=== PATIENT | female | born 1985 | race Caucasian/White ===

== ENCOUNTER 2017-08-28 11:30 | Emergency (ER) | payer MEDICAID ==
[~2017-08-28] VITALS: Ht 167.6 cm; Wt 113.4 kg
[~2017-08-28 11:30] MED LIST: AMITRIPTYLINE H10 M1 PO; BACLOFEN 10MG T10 M1 PO; BACTRIM DS TAB1 EACH PO; BIOTIN10 MG PO; CIPROFLOXACIN500 M1 PO; COLACE100 MG PO; CYCLOBENZAPRINE5 MG PO; DAILY VITE1 EACH PO; DOC-Q-LACE PO; DOC-Q-LACE100 MG PO; ENABLEX PO; ENABLEX15 MG PO; FLEXERIL PO; FLONASE16 GM; FOLIC ACID1 MG PO; GILENYA0.5 MG PO; IBUPROFEN 400400 M1 PO; IRON325; IRON325 PO; LIORESAL 10 MG10 MG PO; LORATIDINE 10 M10 M1; MAGNESIUM400 M1 PO; NORCO 5-325 TA1 EACH PO; PERCOCET 5-3251 EACH PO; PHENERGAN 25 MG25 M1 PO; PREDNISONE50 MG PO; PYRIDIUM200 MG PO; Rebif; SERTRALINE HCL50 MG PO; TAB-A-VITE; TOFRANIL; TOLTERODINE TART4 MG PO; TRAMADOL 50 MG50 MG PO; VITAMIN D31000 UNI2 PO; VITAMIN D400 UNI1 PO; ZANTAC 150MG T150 MG PO; ZOFRAN ODT4 MG PO; ZOVIRAX400 MG PO; [UNRECOGNIZED DRUG - REMARK] PO
[2017-08-28 11:47] VITALS: BP 140/88
[2017-08-28] MEDS ORDERED: BACTRIM DS TAB1 EACH PO (12:06)
[2017-08-28] MEDS ORDERED: ACETAMINOPHEN-1 EAC1 PO (12:06)
[2017-08-28] MEDS ORDERED: NAPROSYN500 MG PO (12:06)
[2017-08-28] MEDS ORDERED: KEFLEX500 M1 PO (12:06)
== END 2017-08-28 12:26 | disposition home or self-care (01) ==
LOC: M.ERS 11:30
DX: L73.9 Follicular disorder, unspecified (principal); G35 Multiple sclerosis; F10.99 Alcohol use, unspecified with unspecified alcohol-induced disorder; Z98.890 Other specified postprocedural states; Z88.5 Allergy status to narcotic agent; Z77.22 Contact with and (suspected) exposure to environmental tobacco smoke (acute) (chronic)

== ENCOUNTER 2018-02-02 20:27 | Emergency (ER) | payer MEDICAID ==
[~2018-02-02] VITALS: Ht 167.6 cm; Wt 113.4 kg
[~2018-02-02 20:27] MED LIST changes: +ACETAMINOPHEN-1 EAC1 PO; +KEFLEX500 M1 PO; +NAPROSYN500 MG PO
[2018-02-02 20:38] VITALS: BP 139/84
[2018-02-02 20:41] LABS: URINE BILIRUBIN NEGATIVE (Negative); URINE BLOOD TRACE (Negative); URINE CLARITY CLOUDY; URINE COLOR YELLOW; URINE GLUCOSE-RANDOM NEGATIVE (Negative); URINE KETONES NEGATIVE (Negative); URINE PROTEIN 1+ (Negative); URINE SPECIFIC GRAVITY >= 1.030 (1.005-1.030); URINE UROBILINOGEN 0.2 E.U./dl (0.2-1.0)
[2018-02-02 20:42] LABS: URINE LEUKOCYTES-REFLEX 2+ (Negative); URINE NITRITE-REFLEX POSITIVE (Negative)
[2018-02-02] MEDS ORDERED: MYRBETRIQ50 MG PO (20:45)
[2018-02-02] MEDS ORDERED: PYRIDIUM100 M1 PO (20:52)
[2018-02-02] MEDS ORDERED: BACTRIM DS TAB1 EACH PO (20:52)
[2018-02-02 20:56] LABS: CASTS None Seen /LPF (None Seen); SQUAMOUS 4-10 Moderate /LPF (0-3)
[2018-02-02 20:57] LABS: BACTERIA-REFLEX >30 Many /HPF (None Seen); CRYSTALS None Seen /LPF (None Seen); URINE RBC 0-2 Rare /HPF (0-2); URINE WBC-REFLEX >25 Many /HPF (0-5)
== END 2018-02-02 20:51 | disposition home or self-care (01) ==
LOC: M.ERS 20:27
PROVIDERS: Physician Assistant
DX: N39.0 Urinary tract infection, site not specified (principal); Z88.6 Allergy status to analgesic agent; Z77.22 Contact with and (suspected) exposure to environmental tobacco smoke (acute) (chronic)

== ENCOUNTER 2018-07-31 08:22 | Emergency (ER) | payer MEDICAID ==
[~2018-07-31] VITALS: Ht 167.6 cm; Wt 120.2 kg
[~2018-07-31 08:22] MED LIST changes: +MYRBETRIQ50 MG PO; +PYRIDIUM100 M1 PO
[2018-07-31 08:31] VITALS: BP 131/72
[2018-07-31] MEDS ORDERED: LEMTRADA12 MG/1.2 IV (08:33)
[2018-07-31] MEDS ORDERED: AMOXICILLIN 50500 MG PO (08:55)
== END 2018-07-31 09:01 | disposition home or self-care (01) ==
LOC: M.ERS 08:22
DX: J06.9 Acute upper respiratory infection, unspecified (principal); G35 Multiple sclerosis; Z88.5 Allergy status to narcotic agent; Z86.2 Personal history of diseases of the blood and blood-forming organs and certain disorders involving the immune mechanism; Z77.22 Contact with and (suspected) exposure to environmental tobacco smoke (acute) (chronic)

== ENCOUNTER 2018-08-19 08:42 | Emergency (ER) | payer MEDICAID ==
[~2018-08-19] VITALS: Ht 167.6 cm; Wt 117.9 kg
[~2018-08-19 08:42] MED LIST changes: +AMOXICILLIN 50500 MG PO; +LEMTRADA12 MG/1.2 IV
[2018-08-19 09:39] LABS: URINE BILIRUBIN NEGATIVE (Negative); URINE BLOOD 3+ (Negative); URINE CLARITY CLEAR; URINE COLOR YELLOW; URINE GLUCOSE-RANDOM NEGATIVE (Negative); URINE KETONES NEGATIVE (Negative); URINE NITRITE-REFLEX NEGATIVE (Negative); URINE PROTEIN NEGATIVE (Negative); URINE UROBILINOGEN 0.2 E.U./dl (0.2-1.0)
[2018-08-19 09:41] LABS: URINE LEUKOCYTES-REFLEX 3+ (Negative)
[2018-08-19 09:48] LABS: BACTERIA-REFLEX >30 Many /HPF (None Seen); SQUAMOUS >10 Many /LPF (0-3); URINE WBC-REFLEX >25 Many /HPF (0-5)
[2018-08-19 09:49] LABS: CASTS None Seen /LPF (None Seen); CRYSTALS None Seen /LPF (None Seen)
[2018-08-19] MEDS ORDERED: KEFLEX500 M1 PO (09:51)
[2018-08-19] MEDS ORDERED: PYRIDIUM200 MG PO (09:51)
[2018-08-19 10:05] VITALS: BP 122/60
== END 2018-08-19 10:06 | disposition home or self-care (01) ==
LOC: M.ERS 08:42
PROVIDERS: Personal Emergency Response Attendant
DX: N39.0 Urinary tract infection, site not specified (principal); G35 Multiple sclerosis; F32.9 Major depressive disorder, single episode, unspecified; Z86.2 Personal history of diseases of the blood and blood-forming organs and certain disorders involving the immune mechanism; Z77.22 Contact with and (suspected) exposure to environmental tobacco smoke (acute) (chronic)

== ENCOUNTER 2018-08-31 06:56 | Emergency (ER) | payer MEDICAID ==
[~2018-08-31] VITALS: Ht 167.6 cm; Wt 113.4 kg
[2018-08-31 07:24] LABS: URINE BILIRUBIN NEGATIVE (Negative); URINE BLOOD 1+ (Negative); URINE CLARITY CLEAR; URINE COLOR YELLOW; URINE GLUCOSE-RANDOM NEGATIVE (Negative); URINE KETONES NEGATIVE (Negative); URINE LEUKOCYTES-REFLEX 2+ (Negative); URINE NITRITE-REFLEX POSITIVE (Negative); URINE PROTEIN 2+ (Negative); URINE SPECIFIC GRAVITY >= 1.030 (1.005-1.030); URINE UROBILINOGEN 0.2 E.U./dl (0.2-1.0)
[2018-08-31 07:27] LABS: BACTERIA-REFLEX >30 Many /HPF (None Seen); CASTS None Seen /LPF (None Seen); CRYSTALS None Seen /LPF (None Seen); MUCUS None Seen strn/LPF (None Seen); SQUAMOUS 0-3 Few /LPF (0-3); URINE RBC 3-10 Few /HPF (0-2); URINE WBC-REFLEX >25 Many /HPF (0-5)
[2018-08-31] MEDS ORDERED: BACTRIM DS TAB1 EACH PO (07:29)
[2018-08-31] MEDS ORDERED: PYRIDIUM200 MG PO (07:29)
[2018-08-31 07:30] VITALS: BP 123/64
== END 2018-08-31 07:55 | disposition home or self-care (01) ==
LOC: M.ERS 06:56
PROVIDERS: Emergency Medicine
DX: N39.0 Urinary tract infection, site not specified (principal); G35 Multiple sclerosis; F32.9 Major depressive disorder, single episode, unspecified; Z86.2 Personal history of diseases of the blood and blood-forming organs and certain disorders involving the immune mechanism; Z77.22 Contact with and (suspected) exposure to environmental tobacco smoke (acute) (chronic); Z88.6 Allergy status to analgesic agent

== ENCOUNTER 2018-09-19 06:10 | Emergency (ER) | payer MEDICAID ==
[~2018-09-19] VITALS: Ht 167.6 cm; Wt 116.6 kg
[2018-09-19 06:38] LABS: ABSOLUTE BASOPHILS 0.1 thou/uL (0.0-0.2); ABSOLUTE EOSINOPHILS 0.4 thou/uL (0.0-0.7); ABSOLUTE LYMPHOCYTES 1.9 thou/uL (0.8-5.3); ABSOLUTE MONOCYTES 0.6 thou/uL (0.0-1.2); ABSOLUTE NEUTROPHILS 7.2 thou/uL (1.6-8.1); BASOPHILS 0.8 %; EOSINOPHILS 3.7 %; HEMATOCRIT 37.5 % (37.0-47.0); HEMOGLOBIN 12.2 gm/dL (12.0-15.0); LYMPHOCYTES 18.5 %; MCH 25.4 pg (26.0-34.0); MCHC 32.5 g/dL (28.0-37.0); MCV 78.2 fL (80.0-100.0); MONOCYTES 5.9 %; MPV 7.3 fl. (7.2-11.1); NUCLEATED RBCS 0 /100WBC; PLATELET COUNT* 409 thou/uL (150-400); POLYS 71.1 %; RBC 4.79 mil/uL (4.20-5.00); WBC 10.1 thou/uL (4.0-11.0)
[2018-09-19 06:41] LABS: URINE BILIRUBIN NEGATIVE (Negative); URINE BLOOD 3+ (Negative); URINE CLARITY CLEAR; URINE COLOR YELLOW; URINE GLUCOSE-RANDOM NEGATIVE (Negative); URINE KETONES NEGATIVE (Negative); URINE NITRITE-REFLEX NEGATIVE (Negative); URINE PROTEIN 2+ (Negative); URINE SPECIFIC GRAVITY 1.015 (1.005-1.030); URINE UROBILINOGEN 0.2 E.U./dl (0.2-1.0)
[2018-09-19 06:54] LABS: CALCIUM 9.1 mg/dL (8.5-10.1); POTASSIUM 3.7 mmol/L (3.5-5.1)
[2018-09-19 06:56] LABS: URINE LEUKOCYTES-REFLEX 2+ (Negative)
[2018-09-19 06:58] LABS: ALBUMIN 3.7 g/dL (3.4-5.0); TOTAL BILIRUBIN 0.2 mg/dL (<0.1-1.0); TOTAL PROTEIN 7.9 g/dL (6.4-8.2)
[2018-09-19 07:19] LABS: SQUAMOUS 4-10 Moderate /LPF (0-3)
[2018-09-19 07:20] LABS: URINE RBC 3-10 Few /HPF (0-2)
[2018-09-19 07:24] LABS: CASTS None Seen /LPF (None Seen); CRYSTALS None Seen /LPF (None Seen); MUCUS 0-3 Light strn/LPF (None Seen)
[2018-09-19] MEDS ORDERED: BACTRIM DS TAB1 EACH PO (08:03)
[2018-09-19] MEDS ORDERED: PHENAZOPYRIDIN200 M2 PO (08:03)
[2018-09-19 08:24] VITALS: BP 124/68
== END 2018-09-19 08:25 | disposition home or self-care (01) ==
LOC: M.ERS 06:10
PROVIDERS: Personal Emergency Response Attendant
DX: N39.0 Urinary tract infection, site not specified (principal); G35 Multiple sclerosis; F32.9 Major depressive disorder, single episode, unspecified; Z86.2 Personal history of diseases of the blood and blood-forming organs and certain disorders involving the immune mechanism; Z88.6 Allergy status to analgesic agent; Z77.22 Contact with and (suspected) exposure to environmental tobacco smoke (acute) (chronic)

== ENCOUNTER 2018-09-25 17:18 | Emergency (ER) | payer MEDICAID ==
[~2018-09-25] VITALS: Ht 167.6 cm; Wt 115.2 kg
[~2018-09-25 17:18] MED LIST changes: +PHENAZOPYRIDIN200 M2 PO
[2018-09-25] MEDS ORDERED: TRAZODONE 150150 M1 PO (17:42)
[2018-09-25] MEDS ORDERED: ACETAMINOPHEN-1 EAC1 PO (18:33)
[2018-09-25 18:58] VITALS: BP 114/76
== END 2018-09-25 18:59 | disposition home or self-care (01) ==
LOC: M.ERS 17:18
DX: S93.401A Sprain of unspecified ligament of right ankle, initial encounter (principal); F32.9 Major depressive disorder, single episode, unspecified; Z90.49 Acquired absence of other specified parts of digestive tract; Z77.22 Contact with and (suspected) exposure to environmental tobacco smoke (acute) (chronic); Z88.5 Allergy status to narcotic agent; W10.9XXA Fall (on) (from) unspecified stairs and steps, initial encounter; Y93.89 Activity, other specified; Y92.89 Other specified places as the place of occurrence of the external cause; Y99.8 Other external cause status

== ENCOUNTER 2018-11-17 19:14 | Emergency (ER) | payer MEDICAID ==
[~2018-11-17] VITALS: Ht 167.6 cm; Wt 113.4 kg
[~2018-11-17 19:14] MED LIST changes: +TRAZODONE 150150 M1 PO
[2018-11-17] MEDS ORDERED: CLARITIN10 MG PO (19:29)
[2018-11-17 19:39] LABS: URINE BILIRUBIN NEGATIVE (Negative); URINE BLOOD 3+ (Negative); URINE CLARITY CLEAR; URINE COLOR YELLOW; URINE GLUCOSE-RANDOM NEGATIVE (Negative); URINE KETONES NEGATIVE (Negative); URINE PROTEIN 3+ (Negative); URINE SPECIFIC GRAVITY >= 1.030 (1.005-1.030); URINE UROBILINOGEN 0.2 E.U./dl (0.2-1.0)
[2018-11-17 19:40] LABS: URINE LEUKOCYTES-REFLEX 2+ (Negative); URINE NITRITE-REFLEX POSITIVE (Negative)
[2018-11-17 19:43] LABS: SQUAMOUS 0-3 Few /LPF (0-3)
[2018-11-17 19:44] LABS: CASTS None Seen /LPF (None Seen); CRYSTALS None Seen /LPF (None Seen); URINE RBC 0-2 Rare /HPF (0-2); URINE WBC-REFLEX >25 Many /HPF (0-5)
[2018-11-17] MEDS ORDERED: BACTRIM DS TAB1 EACH PO (19:50)
[2018-11-17 20:54] VITALS: BP 122/73
== END 2018-11-17 20:58 | disposition home or self-care (01) ==
LOC: M.ERS 19:14
PROVIDERS: Nurse Practitioner Family
DX: N39.0 Urinary tract infection, site not specified (principal); F32.9 Major depressive disorder, single episode, unspecified; Z77.22 Contact with and (suspected) exposure to environmental tobacco smoke (acute) (chronic); Z88.5 Allergy status to narcotic agent

== ENCOUNTER 2018-12-27 10:43 | Emergency (ER) | payer MEDICAID ==
[~2018-12-27] VITALS: Ht 165.1 cm; Wt 120.3 kg
[~2018-12-27 10:43] MED LIST changes: +CLARITIN10 MG PO
[2018-12-27 12:53] LABS: URINE BILIRUBIN NEGATIVE (Negative); URINE BLOOD 3+ (Negative); URINE CLARITY CLEAR; URINE COLOR YELLOW; URINE GLUCOSE-RANDOM NEGATIVE (Negative); URINE KETONES NEGATIVE (Negative); URINE LEUKOCYTES-REFLEX 1+ (Negative); URINE NITRITE-REFLEX NEGATIVE (Negative); URINE PROTEIN NEGATIVE (Negative); URINE SPECIFIC GRAVITY 1.015 (1.005-1.030); URINE UROBILINOGEN 0.2 E.U./dl (0.2-1.0)
[2018-12-27 13:04] LABS: SQUAMOUS >10 Many /LPF (0-3); URINE RBC 3-10 Few /HPF (0-2); URINE WBC-REFLEX 6-15 Few /HPF (0-5)
[2018-12-27 13:05] LABS: CASTS None Seen /LPF (None Seen); CRYSTALS None Seen /LPF (None Seen); MUCUS >6 Heavy strn/LPF (None Seen)
[2018-12-27] MEDS ORDERED: MACROBID 100 M100 M1 PO (13:20)
[2018-12-27] MEDS ORDERED: MEDROL DOSPAK21 TA1 PO (13:20)
[2018-12-27 13:45] VITALS: BP 111/66
== END 2018-12-27 13:45 | disposition home or self-care (01) ==
LOC: M.ERS 10:43
PROVIDERS: Emergency Medicine
DX: N39.0 Urinary tract infection, site not specified (principal); J30.2 Other seasonal allergic rhinitis; G35 Multiple sclerosis; F32.9 Major depressive disorder, single episode, unspecified; Z87.440 Personal history of urinary (tract) infections; Z77.22 Contact with and (suspected) exposure to environmental tobacco smoke (acute) (chronic); Z88.5 Allergy status to narcotic agent; Z86.2 Personal history of diseases of the blood and blood-forming organs and certain disorders involving the immune mechanism

== ENCOUNTER 2019-05-28 14:32 | Emergency (ER) | payer MEDICAID ==
[~2019-05-28] VITALS: Ht 162.6 cm; Wt 113.4 kg
[~2019-05-28 14:32] MED LIST changes: +MACROBID 100 M100 M1 PO; +MEDROL DOSPAK21 TA1 PO
[2019-05-28 15:20] LABS: URINE BILIRUBIN NEGATIVE (Negative); URINE BLOOD 2+ (Negative); URINE CLARITY CLOUDY; URINE COLOR YELLOW; URINE GLUCOSE-RANDOM NEGATIVE (Negative); URINE KETONES NEGATIVE (Negative); URINE PROTEIN 2+ (Negative); URINE UROBILINOGEN 0.2 E.U./dl (0.2-1.0)
[2019-05-28 15:22] LABS: URINE LEUKOCYTES-REFLEX 2+ (Negative); URINE NITRITE-REFLEX POSITIVE (Negative)
[2019-05-28 15:25] LABS: SQUAMOUS >10 Many /LPF (0-3); URINE WBC-REFLEX >25 Many /HPF (0-5); WBC CLUMPS Few (None Seen)
[2019-05-28 15:26] LABS: BACTERIA-REFLEX >30 Many /HPF (None Seen); CASTS None Seen /LPF (None Seen); CRYSTALS None Seen /LPF (None Seen); MUCUS None Seen strn/LPF (None Seen); URINE RBC 3-10 Few /HPF (0-2)
[2019-05-28] MEDS ORDERED: KEFLEX500 M1 PO (15:31)
[2019-05-28] MEDS ORDERED: PHENAZOPYRIDIN200 M2 PO (15:31)
[2019-05-28 15:47] VITALS: BP 116/69
== END 2019-05-28 15:48 | disposition home or self-care (01) ==
LOC: M.ERS 14:32
PROVIDERS: Physician Assistant
DX: N39.0 Urinary tract infection, site not specified (principal); G35 Multiple sclerosis; F32.9 Major depressive disorder, single episode, unspecified; Z87.440 Personal history of urinary (tract) infections; Z86.2 Personal history of diseases of the blood and blood-forming organs and certain disorders involving the immune mechanism; Z88.5 Allergy status to narcotic agent; Z77.22 Contact with and (suspected) exposure to environmental tobacco smoke (acute) (chronic)

== ENCOUNTER 2019-07-09 14:08 | Emergency (ER) | payer MEDICAID ==
[~2019-07-09] VITALS: Ht 162.6 cm; Wt 113.4 kg
[2019-07-09 14:41] LABS: URINE BILIRUBIN NEGATIVE (Negative); URINE BLOOD TRACE (Negative); URINE CLARITY CLEAR; URINE COLOR YELLOW; URINE GLUCOSE-RANDOM NEGATIVE (Negative); URINE KETONES NEGATIVE (Negative); URINE LEUKOCYTES-REFLEX 1+ (Negative); URINE NITRITE-REFLEX NEGATIVE (Negative); URINE PROTEIN TRACE (Negative); URINE UROBILINOGEN 0.2 E.U./dl (0.2-1.0)
[2019-07-09 14:47] LABS: MUCUS 4-6 Moderate strn/LPF (None Seen); SQUAMOUS >10 Many /LPF (0-3)
[2019-07-09 14:48] LABS: BACTERIA-REFLEX 1-9 Few /HPF (None Seen); CASTS None Seen /LPF (None Seen); CRYSTALS None Seen /LPF (None Seen); URINE RBC 0-2 Rare /HPF (0-2); URINE WBC-REFLEX >25 Many /HPF (0-5)
[2019-07-09] MEDS ORDERED: KEFLEX500 M2 PO (14:54)
[2019-07-09 15:01] VITALS: BP 138/76
== END 2019-07-09 15:02 | disposition home or self-care (01) ==
LOC: M.ERS 14:08
PROVIDERS: Nurse Practitioner Family
DX: N39.0 Urinary tract infection, site not specified (principal); F32.9 Major depressive disorder, single episode, unspecified; D64.9 Anemia, unspecified; Z88.5 Allergy status to narcotic agent; Z79.899 Other long term (current) drug therapy

== ENCOUNTER 2019-09-24 12:01 | Emergency (ER) | payer MEDICAID ==
[~2019-09-24] VITALS: Ht 162.6 cm; Wt 117.0 kg
[~2019-09-24 12:01] MED LIST changes: +KEFLEX500 M2 PO
[2019-09-24 12:24] LABS: URINE BILIRUBIN NEGATIVE (Negative); URINE BLOOD 2+ (Negative); URINE CLARITY SL CLOUDY; URINE COLOR YELLOW; URINE GLUCOSE-RANDOM NEGATIVE (Negative); URINE KETONES NEGATIVE (Negative); URINE LEUKOCYTES-REFLEX 1+ (Negative); URINE NITRITE-REFLEX NEGATIVE (Negative); URINE PROTEIN TRACE (Negative); URINE UROBILINOGEN 0.2 E.U./dl (0.2-1.0)
[2019-09-24 12:40] LABS: SQUAMOUS >10 Many /LPF (0-3)
[2019-09-24 12:42] LABS: CASTS None Seen /LPF (None Seen); CRYSTALS None Seen /LPF (None Seen); MUCUS 0-3 Light strn/LPF (None Seen)
[2019-09-24] MEDS ORDERED: MACROBID 100 M100 M2 PO (12:46)
[2019-09-24 13:19] LABS: INFLUENZA A ANTIGEN Negative (Negative); INFLUENZA B ANTIGEN Negative (Negative)
[2019-09-24 13:25] VITALS: BP 120/70
== END 2019-09-24 13:25 | disposition home or self-care (01) ==
LOC: M.ERS 12:01
PROVIDERS: Nurse Practitioner Psychiatric/Mental Health
DX: N39.0 Urinary tract infection, site not specified (principal); R03.0 Elevated blood-pressure reading, without diagnosis of hypertension; F32.9 Major depressive disorder, single episode, unspecified; Z86.2 Personal history of diseases of the blood and blood-forming organs and certain disorders involving the immune mechanism; Z88.5 Allergy status to narcotic agent; Z77.22 Contact with and (suspected) exposure to environmental tobacco smoke (acute) (chronic)

== ENCOUNTER 2020-01-15 20:06 | Emergency (ER) | payer MEDICAID ==
[~2020-01-15] VITALS: Ht 162.6 cm; Wt 116.1 kg
[~2020-01-15 20:06] MED LIST changes: +MACROBID 100 M100 M2 PO
[2020-01-15 21:05] LABS: URINE BILIRUBIN NEGATIVE (Negative); URINE BLOOD 2+ (Negative); URINE CLARITY CLOUDY; URINE COLOR YELLOW; URINE GLUCOSE-RANDOM NEGATIVE (Negative); URINE KETONES NEGATIVE (Negative); URINE LEUKOCYTES-REFLEX 3+ (Negative); URINE NITRITE-REFLEX POSITIVE (Negative); URINE PROTEIN 1+ (Negative); URINE SPECIFIC GRAVITY 1.025 (1.005-1.030); URINE UROBILINOGEN 0.2 E.U./dl (0.2-1.0)
[2020-01-15] MEDS ORDERED: KEFLEX500 M1 PO (21:09)
[2020-01-15] MEDS ORDERED: PHENAZOPYRIDIN200 M2 PO (21:09)
[2020-01-15 21:14] LABS: BACTERIA-REFLEX >30 Many /HPF (None Seen); CASTS None Seen /LPF (None Seen); CRYSTALS None Seen /LPF (None Seen); SQUAMOUS 0-3 Few /LPF (0-3); URINE RBC 3-10 Few /HPF (0-2); URINE WBC-REFLEX >25 Many /HPF (0-5); WBC CLUMPS Many (None Seen)
[2020-01-15 21:21] VITALS: BP 122/65
== END 2020-01-15 21:24 | disposition home or self-care (01) ==
LOC: M.ERS 20:06
PROVIDERS: Nurse Practitioner Family
DX: N39.0 Urinary tract infection, site not specified (principal); F32.9 Major depressive disorder, single episode, unspecified; Z90.49 Acquired absence of other specified parts of digestive tract; Z86.2 Personal history of diseases of the blood and blood-forming organs and certain disorders involving the immune mechanism; Z87.440 Personal history of urinary (tract) infections; Z77.22 Contact with and (suspected) exposure to environmental tobacco smoke (acute) (chronic); Z88.6 Allergy status to analgesic agent

== ENCOUNTER 2020-02-26 03:22 | Emergency (ER) | payer MEDICAID ==
[~2020-02-26] VITALS: Ht 162.6 cm; Wt 115.7 kg
[2020-02-26] MEDS ORDERED: AUGMENTIN 875-1 EACH PO (04:20)
[2020-02-26 05:20] VITALS: BP 103/59
== END 2020-02-26 05:46 | disposition home or self-care (01) ==
LOC: M.ERS 03:22
DX: S80.811A Abrasion, right lower leg, initial encounter (principal); G35 Multiple sclerosis; Z87.440 Personal history of urinary (tract) infections; Z86.2 Personal history of diseases of the blood and blood-forming organs and certain disorders involving the immune mechanism; Z88.5 Allergy status to narcotic agent; Z77.22 Contact with and (suspected) exposure to environmental tobacco smoke (acute) (chronic); W55.51XA Bitten by raccoon, initial encounter; Y93.89 Activity, other specified; Y92.89 Other specified places as the place of occurrence of the external cause; Y99.8 Other external cause status

== ENCOUNTER → 2020-03-02 | Outpatient (CLI) | payer MEDICAID ==
[~2020-03-02] MED LIST changes: +AUGMENTIN 875-1 EACH PO
[2020-03-02 10:25] VITALS: BP 124/69
== END ==
LOC: M.INFUS 05:45
PROVIDERS: ATTEND Emergency Medicine
DX: Z23 Encounter for immunization (principal); Z20.3 Contact with and (suspected) exposure to rabies; S81.851D Open bite, right lower leg, subsequent encounter

== ENCOUNTER → 2020-03-04 | Outpatient (CLI) | payer MEDICAID | LOC: M.INFUS 09:00 | PROVIDERS: ATTEND Emergency Medicine | DX: Z23 Encounter for immunization (principal); Z20.3 Contact with and (suspected) exposure to rabies; S81.851D Open bite, right lower leg, subsequent encounter ==

== ENCOUNTER → 2020-03-11 | Outpatient (CLI) | payer MEDICAID | LOC: M.INFUS 09:00 | PROVIDERS: ATTEND Emergency Medicine | DX: Z23 Encounter for immunization (principal); S80.811D Abrasion, right lower leg, subsequent encounter; Z20.3 Contact with and (suspected) exposure to rabies; W55 Contact with other mammals ==

== ENCOUNTER 2020-03-25 22:06 | Emergency (ER) | payer OTHER, MEDICAID ==
[~2020-03-25] VITALS: Ht 172.7 cm; Wt 117.9 kg
[2020-03-25] MEDS ORDERED: CYCLOBENZAPRINE5 MG PO (23:10)
[2020-03-25] MEDS ORDERED: HYDROCODON-ACE1 EAC7 PO (23:10)
[2020-03-25 23:31] VITALS: BP 121/70
== END 2020-03-25 23:34 | disposition home or self-care (01) ==
LOC: M.ERS 22:06
DX: S70.11XA Contusion of right thigh, initial encounter (principal); S30.1XXA Contusion of abdominal wall, initial encounter; S20.01XA Contusion of right breast, initial encounter; S40.012A Contusion of left shoulder, initial encounter; S40.011A Contusion of right shoulder, initial encounter; F32.9 Major depressive disorder, single episode, unspecified; Z90.49 Acquired absence of other specified parts of digestive tract; Z86.2 Personal history of diseases of the blood and blood-forming organs and certain disorders involving the immune mechanism; Z87.440 Personal history of urinary (tract) infections; Z77.22 Contact with and (suspected) exposure to environmental tobacco smoke (acute) (chronic); Z88.6 Allergy status to analgesic agent; V89.2XXA Person injured in unspecified motor-vehicle accident, traffic, initial encounter; Y93.89 Activity, other specified; Y92.89 Other specified places as the place of occurrence of the external cause; Y99.8 Other external cause status

== ENCOUNTER 2020-09-27 12:29 | Emergency (ER) | payer MEDICAID ==
[~2020-09-27] VITALS: Ht 157.5 cm; Wt 100.7 kg
[~2020-09-27 12:29] MED LIST changes: +HYDROCODON-ACE1 EAC7 PO
[2020-09-27] MEDS ORDERED: MEDROLDOSEPACK PO (13:43)
[2020-09-27] MEDS ORDERED: FLEXERIL PO (13:44)
[2020-09-27] MEDS ORDERED: NAPROSYN500 MG PO (13:44)
[2020-09-27 14:00] VITALS: BP 98/65
== END 2020-09-27 14:01 | disposition home or self-care (01) ==
LOC: M.ERS 12:29
DX: M54.5 Low back pain (principal); F32.9 Major depressive disorder, single episode, unspecified; Z90.49 Acquired absence of other specified parts of digestive tract; Z79.899 Other long term (current) drug therapy; Z88.5 Allergy status to narcotic agent; W19.XXXA Unspecified fall, initial encounter; Y93.89 Activity, other specified; Y92.89 Other specified places as the place of occurrence of the external cause; Y99.8 Other external cause status

== ENCOUNTER 2021-04-30 18:40 | Emergency (ER) | payer MEDICAID ==
[~2021-04-30] VITALS: Ht 160 cm; Wt 103.9 kg
[~2021-04-30 18:40] MED LIST changes: +MEDROLDOSEPACK PO
[2021-04-30 19:35] LABS: URINE BILIRUBIN NEGATIVE (Negative); URINE BLOOD NEGATIVE (Negative); URINE CLARITY SL CLOUDY; URINE COLOR YELLOW; URINE GLUCOSE-RANDOM NEGATIVE (Negative); URINE KETONES NEGATIVE (Negative); URINE LEUKOCYTES 2+ (Negative); URINE NITRITE NEGATIVE (Negative); URINE PROTEIN NEGATIVE (Negative); URINE SPECIFIC GRAVITY 1.015 (1.005-1.030); URINE UROBILINOGEN 0.2 E.U./dl (0.2-1.0)
[2021-04-30 19:40] LABS: CRYSTALS None Seen /LPF (None Seen); MUCUS 0-3 Light strn/LPF (None Seen); SQUAMOUS >10 Many /LPF (0-3)
[2021-04-30 19:41] LABS: BACTERIA 1-9 Few /HPF (None Seen); HYALINE CASTS 0-3 Few /LPF (None Seen); URINE RBC None Seen /HPF (0-2); URINE WBC 6-15 Few /HPF (0-5)
[2021-04-30] MEDS ORDERED: ZOFRAN ODT4 MG PO (19:59)
[2021-04-30] MEDS ORDERED: CEPHALEXIN500 MG PO (19:59)
[2021-04-30 20:09] VITALS: BP 112/63
== END 2021-04-30 20:09 | disposition home or self-care (01) ==
LOC: M.ERS 18:40
PROVIDERS: Physician Assistant
DX: N39.0 Urinary tract infection, site not specified (principal); H81.10 Benign paroxysmal vertigo, unspecified ear; F43.29 Adjustment disorder with other symptoms; Z79.899 Other long term (current) drug therapy; Z90.49 Acquired absence of other specified parts of digestive tract; Z87.891 Personal history of nicotine dependence; Z88.5 Allergy status to narcotic agent

== ENCOUNTER 2021-07-29 14:57 | Emergency (ER) | payer MEDICAID ==
[~2021-07-29] VITALS: Ht 157.5 cm; Wt 104.3 kg
[~2021-07-29 14:57] MED LIST changes: +CEPHALEXIN500 MG PO
[2021-07-29 16:20] LABS: INFLUENZA A ANTIGEN Negative (Negative); INFLUENZA B ANTIGEN Negative (Negative); URINE BILIRUBIN NEGATIVE (Negative); URINE BLOOD 3+ (Negative); URINE CLARITY TURBID; URINE COLOR YELLOW; URINE GLUCOSE-RANDOM NEGATIVE (Negative); URINE KETONES NEGATIVE (Negative); URINE NITRITE-REFLEX NEGATIVE (Negative); URINE PROTEIN NEGATIVE (Negative); URINE SPECIFIC GRAVITY 1.025 (1.005-1.030); URINE UROBILINOGEN 0.2 E.U./dl (0.2-1.0)
[2021-07-29 16:28] LABS: CRYSTALS None Seen /LPF (None Seen); MUCUS None Seen strn/LPF (None Seen); SQUAMOUS >10 Many /LPF (0-3)
[2021-07-29 16:29] LABS: BACTERIA-REFLEX >30 Many /HPF (None Seen); CASTS None Seen /LPF (None Seen); URINE LEUKOCYTES-REFLEX 2+ (Negative); URINE WBC-REFLEX >25 Many /HPF (0-5)
[2021-07-29 16:30] LABS: URINE RBC 3-10 Few /HPF (0-2)
[2021-07-29] MEDS ORDERED: CEPHALEXIN500 MG PO (17:45)
[2021-07-29] MEDS ORDERED: PYRIDIUM200 MG PO (17:45)
[2021-07-29 17:50] VITALS: BP 114/68
== END 2021-07-29 17:50 | disposition home or self-care (01) ==
LOC: M.ERS 14:57
PROVIDERS: Nurse Practitioner Family
DX: N39.0 Urinary tract infection, site not specified (principal); Z20.822 Contact with and (suspected) exposure to COVID-19; F32.9 Major depressive disorder, single episode, unspecified; Z87.891 Personal history of nicotine dependence; Z79.899 Other long term (current) drug therapy; Z88.5 Allergy status to narcotic agent